=== PATIENT | male | born 1970 | race Caucasian/White ===

== ENCOUNTER 2022-05-20 06:46 | Observation (INO) ==
[~2022-05-20 06:46] MED LIST: Buffered Lidocaine 1% SYRIN 1 ml INTRADERM ONE; Lactated Ringers 1000 ml BAG 1,000 ML IV SCH
[2022-05-20] MEDS ORDERED: ceFAZolin 2 GM PREMIX 2 GM/50 ML BAG ONE (07:05)
[2022-05-20] MEDS ORDERED: fentaNYL 100 mcg/2 ml 50 MCG/ML VIAL ONE (07:17)
[2022-05-20] MEDS ORDERED: Midazolam 2 mg/2 ml VIAL 1 mg/ml 2 ml VIAL (2 mg) ONE (07:17)
[2022-05-20] MEDS ORDERED: Naloxone 0.4 mg VIAL 0.4 mg/ml 1 ml VIAL IV PRN (08:05)
[2022-05-20] MEDS ORDERED: Prochlorperazine 5 mg/ml 2 ml VIAL (10 mg) IV PRN (08:05)
[2022-05-20] MEDS ORDERED: Phenylephrine IV 10 MG/ML 1 ml VIAL ONE (08:31)
[2022-05-20] MEDS ORDERED: ROPIVACAINE 5 MG/ML 30 ML BTL (0.5%) ONE (08:46)
[2022-05-20] MEDS ORDERED: Dexamethasone IV 4 MG/ML VIAL 1 ml VIAL ONE (09:40)
[2022-05-20] MEDS ORDERED: Ondansetron 4 mg VIAL 2 MG/ML 2 ml VIAL ONE (09:40)
[2022-05-20] MEDS ORDERED: Bupivacaine 0.25% SDV 30 ML ONE (10:34)
[2022-05-20] MEDS ORDERED: Lactulose 30 ml UDC PO PRN (11:01)
[2022-05-20] MEDS ORDERED: Morphine 2 MG/ML SYRINGE IV PRN (11:01)
[2022-05-20] MEDS ORDERED: Magnesium Hydroxide LIQ 30 ML UDC PO PRN (11:01)
[2022-05-20] MEDS ORDERED: Ondansetron ODT 4 mg TAB 4 MG TAB PO PRN (11:01)
[2022-05-20] MEDS ORDERED: Ondansetron 4 mg VIAL 2 MG/ML 2 ml VIAL IV PRN (11:01)
[2022-05-20] MEDS ORDERED: Propofol 10 MG/ML 20 ML BTL ONE (11:44)
[2022-05-20] MEDS ORDERED: HYDROmorphone 1 MG/1 ML SYRINGE ONE (12:47)
[2022-05-20] MEDS: HYDROmorphone 1 MG/1 ML SYRINGE IV PRN ×3 (12:48→13:35)
[2022-05-20] MEDS: Lactated Ringers 1000 ml BAG 1,000 ML IV SCH (14:10)
[2022-05-20] MEDS: ceFAZolin 1 GM ADVAN 1 GM in NS 0.9% 50 ML 50 ML IVPB SCH (17:32)
[2022-05-20] MEDS: Magnesium Hydroxide LIQ 30 ML UDC PO SCH (20:51)
[2022-05-21] MEDS: Lactated Ringers 1000 ml BAG 1,000 ML IV SCH ×2 (00:02→09:08)
[2022-05-21] MEDS: ceFAZolin 1 GM ADVAN 1 GM in NS 0.9% 50 ML 50 ML IVPB SCH ×2 (00:13→09:08)
[2022-05-21 07:29] LABS: Hematocrit 38 % (42-52); Hemoglobin 13.1 g/dL (14.0-18.0); Mean Platelet Volume 7.8 fL (7.4-10.4); Platelet Count 205 10^3/uL (150-450)
[2022-05-21] MEDS: Magnesium Hydroxide LIQ 30 ML UDC PO SCH (08:09)
[2022-05-21 08:16] LABS: Calcium 8.6 mg/dL (8.6-10.3); Potassium 4.3 mmol/L (3.5-5.0); eGFR CKD-EPI 117.3 (>60)
[2022-05-21] MEDS ORDERED: Vitamin THERAPEUTIC TAB PO SCH (09:00)
[2022-05-21] MEDS ORDERED: Enoxaparin 40 MG/0.4 ML SYR SUBCUT SCH (09:00)
[2022-05-21 11:44] VITALS: BP 120/65
== END 2022-05-21 13:15 | disposition home or self-care (01) ==
LOC: OR 06:46 → SSU 06:46
PROVIDERS: ADMIT Orthopaedic Surgery Adult Reconstructive Orthopaedic Surgery; ATTEND Orthopaedic Surgery Adult Reconstructive Orthopaedic Surgery